=== PATIENT | male | born 1945 | race Caucasian/White ===

== ENCOUNTER 2019-03-02 09:38 | Inpatient (IN) | payer OTHER, MEDICARE, BC ==
[2019-03-02 10:29] LABS: ABSOLUTE LYMPHOCYTES (AUTO) 1.9 10^3/uL (0.5-4.7); ABSOLUTE MONOCYTES (AUTO) 0.6 10^3/uL (0.1-1.4); ABSOLUTE NEUT (AUTO) 4.8 10^3/uL (1.7-8.2); BASOPHILS % (AUTO) 0.5 % (0-2); EOSINOPHILS % (AUTO) 0.7 % (0-6); HEMOGLOBIN 16.9 g/dL (13.5-17.0); LYMPHOCYTES % (AUTO) 25.7 % (13-45); MEAN CORPUSCULAR HEMOGLOBIN 32.7 pg (27.0-33.4); MEAN CORPUSCULAR HGB CONC 33.8 g/dL (32.0-36.0); MEAN CORPUSCULAR VOLUME 97 fl (80-97); MONOCYTES % (AUTO) 7.8 % (3-13); PLATELET COUNT 190 10^3/uL (150-450); RED BLOOD COUNT 5.17 10^6/uL (4.35-5.55); RED CELL DISTRIBUTION WIDTH 14.1 % (11.5-14.0); SEGMENTED NEUTROPHILS % (AUTO) 65.3 % (42-78); TOTAL CELLS COUNTED % (AUTO) 100 %; WHITE BLOOD COUNT 7.3 10^3/uL (4.0-10.5)
[2019-03-02 10:44] LABS: ALBUMIN 4.7 g/dL (3.5-5.0); ALKALINE PHOSPHATASE 79 U/L (38-126); ANION GAP 8 (5-19); ASPARTATE AMINO TRANSFERASE 41 U/L (17-59); BILIRUBIN,DIRECT 0.3 mg/dL (0.0-0.4); BILIRUBIN,TOTAL 1.3 mg/dL (0.2-1.3); BLOOD UREA NITROGEN 22 mg/dL (7-20); CALCIUM 9.9 mg/dL (8.4-10.2); CARBON DIOXIDE 30 mmol/L (22-30); CHLORIDE 100 mmol/L (98-107); CREATINE KINASE 95 U/L (55-170); GLUCOSE 97 mg/dL (75-110); POTASSIUM 4.6 mmol/L (3.6-5.0); TOTAL PROTEIN 7.6 g/dL (6.3-8.2)
[2019-03-02 10:54] LABS: CREATINE KINASE MB 1.35 ng/mL (<4.55)
[2019-03-02 11:00] LABS: TROPONIN I < 0.012 ng/mL
--- NOTE | 2019-03-02 12:46 | EKG REPORT ---
SEVERITY:- ABNORMAL ECG - ATRIAL FIBRILLATION RIGHT BUNDLE BRANCH BLOCK : Confirmed by: Reggie Mckenzie MD 02-Mar-2019 12:45:18
[2019-03-02 13:05] LABS: INTERNATIONAL RATION (INR) 0.91; PROTHROMBIN TIME 12.2 SEC (11.4-15.4)
[2019-03-02 13:07] LABS: D-DIMER 0.52 ug/mL (0.00-0.50)
--- NOTE | 2019-03-02 14:05 | RADIOLOGY REPORT (SQ) ---
EXAM DESCRIPTION: CHEST SINGLE VIEW COMPLETED DATE/TIME: 03/02/2019 1:51 pm REASON FOR STUDY: New onset atrial fibrillation COMPARISON: None. EXAM PARAMETERS: NUMBER OF VIEWS: One view. TECHNIQUE: Single frontal radiographic view of the chest acquired. RADIATION DOSE: NA LIMITATIONS: None. FINDINGS: LUNGS AND PLEURA: No opacities, masses or pneumothorax. No pleural effusion. MEDIASTINUM AND HILAR STRUCTURES: No masses. Ectatic aorta. HEART AND VASCULAR STRUCTURES: Heart upper limits of normal in size. Normal vasculature. BONES: No acute findings. Degenerative changes in the spine. HARDWARE: None in the chest. OTHER: No other significant finding. IMPRESSION: NO ACUTE RADIOGRAPHIC FINDING IN THE CHEST. TECHNICAL DOCUMENTATION: JOB ID: [id number] [employer]- All Rights Reserved Reading location - IP/workstation name: [email or web address]
--- NOTE | 2019-03-02 14:23 | ER Document Report ---
Entered by RAYSHAWN MARCH SCRIBE 03/02/19 1249 Acting as scribe for:BRANDON CALL MD ED General - General Chief Complaint: Arrhythmia Stated Complaint: SHOULDER PAIN Time Seen by Provider: 03/02/19 12:21 Information source: Patient Notes: 73 year old presents to the ED with possible AFib via EMS. Patient reports no history of abnormal heart rhythm, but adds that oral surgeon stated he had Afib 4 months ago. Patient did not follow-up with his doctor after he was told by the oral surgeon that he needed to. Patient also reports he had an MRI of his back about 9 to 12 months ago that showed an aneurysm and he needed to see someone for that. He does not know where the aneurysm was and he did not follow-up by history. The pain management practice told him about the aneurysm seen when they looked at the MRI prior to doing epidural injections. He states he did get 3 shots in his back. He does state that his doctor does an ultrasound of his aorta every 6 months but this he states that it is never been enlarged. He states that the MRI was done at [facility]. I did call [facility] and they looked through their computer records and could not find a record of him ever having been there for any studies. Today the patient is complaining of pain in the left neck and shoulder going down to the elbow. He states that he can "hardly move" and "painful to move". This pain in his neck, shoulder to elbow began 3 days prior to arrival in ED. Patient complains of cramps in legs, feet and toes that started around a year ago. Patient also shows concern of reddish skin of the face that has been present for a long time. Family was requesting that we do toxin screens on the patient to find out what is wrong with him. TRAVEL OUTSIDE OF THE [place] IN LAST 30 DAYS: No - Related Data Allergies/Adverse Reactions: No Known Allergies Allergy (Verified 03/02/19 12:40) Home Medications: fish oil, 81mg asa, "cholesterol pill" Past Medical History - General Information source: Patient - Social History Smoking Status: Current Some Day Smoker Cigarette use (# per day): Yes Chew tobacco use (# tins/day): No Smoking Education Provided: No Frequency of alcohol use: Occasional Drug Abuse: None Occupation: Used car sales Family History: Reviewed & Not Pertinent Patient has suicidal ideation: No Patient has homicidal ideation: No - Past Medical History Cardiac Medical History: Reports: Hx Hypercholesterolemia Pulmonary Medical History: Reports: None GI Medical History: Reports: Hx Gastroesophageal Reflux Disease Traumatic Medical History: Reports: Hx Fractures - Left first rib fracture Surgical Hx: Other - 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 - Immunizations Hx Diphtheria, Pertussis, Tetanus Vaccination: Yes Review of Systems - Review of Systems Constitutional: No symptoms reported EENT: No symptoms reported Cardiovascular: No symptoms reported Respiratory: No symptoms reported Gastrointestinal: No symptoms reported Genitourinary: No symptoms reported Male Genitourinary: No symptoms reported Musculoskeletal: See HPI, Muscle pain - Left neck, shoulder to elbow Skin: See HPI, Change in color - Red in face Hematologic/Lymphatic: No symptoms reported Neurological/Psychological: No symptoms reported Physical Exam - Vital signs Vitals: Resp Pulse Ox 24 H 99 03/02/19 09:46 03/02/19 09:46 Interpretation: Normal - General General appearance: Appears well, Alert - HEENT Head: Normocephalic, Atraumatic Eyes: Normal Pupils: PERRL Neck: Other - Left posterior cervical muscles and left trapezius muscle tender to palpate - Respiratory Respiratory status: No respiratory distress Chest status: Tender - Tender to palpate the left scapular muscles and left trapezius muscle Breath sounds: Normal - Cardiovascular Rhythm: Regular Heart sounds: Normal auscultation Murmur: No - Abdominal Inspection: Normal Distension: No distension Bowel sounds: Normal Tenderness: Nontender - Back Back: Tender - There is paraspinal cervical tenderness with palpation on the left. Tenderness over the posterior left shoulder and left scapula. - Neurological Neuro grossly intact: Yes Cognition: Normal Orientation: AAOx4 Henderson Coma Scale Eye Opening: Spontaneous Felipe Coma Scale Verbal: Oriented Henderson Coma Scale Motor: Obeys Commands Henderson Coma Scale Total: 15 Speech: Normal - Psychological Associated symptoms: Normal affect, Normal mood - Skin Skin Temperature: Warm Skin Moisture: Dry Skin Color: Normal Location of irregularity: Face - Has what appears to be rosacea on his face. Course - Vital Signs Vital signs: Temp Pulse Resp BP Pulse Ox 25 H 145/93 H 97 03/02/19 13:01 03/02/19 13:01 03/02/19 13:01 - Laboratory Result Diagrams: 03/02/19 09:50 03/02/19 09:50 Laboratory results interpreted by me: 03/02/19 03/02/19 03/02/19 09:50 09:50 09:50 RDW 14.1 H D-Dimer 0.52 H BUN 22 H Est GFR (MDRD) Non-Af 57 L - Diagnostic Test Radiology reviewed: Image reviewed, Reports reviewed - Chest x-ray shows ectatic aorta. CTA chest does not show abnormalities. - EKG Interpretation by Me EKG shows normal: [place], Intervals, QRS Complexes, ST-T Waves Rate: Normal - 93 Rhythm: A.Fib [place]/QRS: RBBB When compared to previous EKG there are: Previous EKG unavailable - Consults Dr. Aguilar Time consulted: 15:05 Consulted provider: will come to ER Discharge - Discharge Clinical Impression: New onset atrial fibrillation, Rosacea Muscle strain of left shoulder region Qualifiers: Encounter type: initial encounter Qualified Code(s): S46.912A - Strain of unspecified muscle, fascia and tendon at shoulder and upper arm level, left arm, initial encounter Condition: Stable Disposition: ADMITTED INPATIENT Admitting Provider: Dr. Aguilar Unit Admitted: Telemetry Scribe Attestation: 03/02/19 13:30 I personally performed the services described in the documentation, reviewed and edited the documentation which was dictated to the scribe in my presence, and it accurately records my words and actions. I personally performed the services described in the documentation, reviewed and edited the documentation which was dictated to the scribe in my presence, and it accurately records my words and actions.
--- NOTE | 2019-03-02 14:46 | RADIOLOGY REPORT (SQ) ---
EXAM DESCRIPTION: CTA CHEST COMPLETED DATE/TIME: 03/02/2019 2:26 pm REASON FOR STUDY: Thoracic aortic artery aneurysm COMPARISON: None. TECHNIQUE: CT scan of the chest performed using helical scanning technique with dynamic intravenous contrast injection. Images reviewed with lung, soft tissue and bone windows. Reconstructed coronal and sagittal MPR images reviewed. Additional 3 dimensional post-processing performed to develop Maximal Intensity Projection images (MN P). All images stored on PACS. All CT scanners at this facility use dose modulation, iterative reconstruction, and/or weight based d osing when appropriate to reduce radiation dose to as low as reasonably achievable (ALARA). [facility]: Dose Right [facility]: CareDose [facility]: Dose Right [facility]: Teradose 4D [facility]: [employer] CONTRAST TYPE AND DOSE: contrast/concentration: Isovue 350.00 mg/ml; Total Contrast Delivered: 67.0 ml; Total Saline Delivered: 57.0 ml Contrast bolus adequate for pulmonary arteries and aorta. RENAL FUNCTION: BUN 22 creatinine 1.24. No RADIATION DOSE: CT Rad equipment meets quality standard of care and radiation dose reduction techniq ues were employed. CTDIvol: 22.3 - 34.7 mGy. DLP: 932 mGy-cm. . LIMITATIONS: None. FINDINGS: LUNGS AND PLEURA: No masses, infiltrates, or pneumothorax. No pleural effusions or pleura l calcifications. AORTA AND GREAT VESSELS: No aneurysm. Contrast bolus not optimized for the aorta. HEART: No pericardial effusion. No significant coronary artery calcifications. PULMONARY ARTERIES: No emboli visualized in the main pulmonary arteries or the segmental branches. HILAR AND MEDIASTINAL STRUCTURES: No identified masses or abnormal nodes. HARDWARE: None in the chest. UPPER ABDOMEN: No significant findings. Limited exam. THYROID AND OTHER SOFT TISSUES: No masses. No adenopathy. BONES: No acute or significant finding. 3D MIPS: Confirm above findings. OTHER: No other significant finding. IMPRESSION: NORMAL CTA OF THE CHEST. NO THORACIC AORTIC ANEURYSM OR DISSECTION. NO PULMONARY EMBOL I. COMMENT: Quality ID # [id number]: Final reports with documentation of one or more dose reduction techniques (e.g., Automated exposure control, adjustment of the mA and/or kV according to patient size, use of iterative reconstruction technique) TECHNICAL DOCUMENTATION: JOB ID: [id number] [employer]- All Rights Reserved Reading location - IP/workstation name: [email or web address]
[2019-03-02] MEDS ORDERED: HEPARIN SOD (PORCINE) 1,000 UNIT/ML 10 ML VIAL IV ONE (17:55)
[2019-03-02] MEDS ORDERED: PROMETHAZINE HCL INJ 25 MG/1 ML VIAL IV PRN (17:56)
[2019-03-02] MEDS ORDERED: ACETAMINOPHEN 325 MG TABLET PO PRN (17:56)
[2019-03-02] MEDS ORDERED: HEPARIN SODIUM,PORCINE/D5W 25,000 UNIT/250 ML RTUINJ IV PRN (17:56)
[2019-03-02] MEDS ORDERED: PROMETHAZINE HCL 25 MG TABLET PO PRN (17:56)
[2019-03-02] MEDS ORDERED: ONDANSETRON HCL INJ/PF 4 MG/2 ML SDV IV PRN (17:56)
[2019-03-02] MEDS ORDERED: ONDANSETRON 4 MG TAB.RAPDIS PO PRN (17:56)
[2019-03-02] MEDS ORDERED: DILTIAZEM HCL/D5W 125 MG/125 ML RTUINJ IV SCH (18:00)
--- NOTE | 2019-03-02 18:17 | PDOC H&P ---
History of Present Illness Admission Date/PCP: 03/02/19 15:46 TYRA ELLIOTT MD History of Present Illness: BETTY BRUCE is a 73 year old male who presents with severe left shoulder pain, sent by his urgent care physician when they discovered he had A. fib on EKG. Patient was initially quite reluctant to go to the hospital but did eventually agree to go. Per patient family he was diagnosed with A. fib by his oral surgeon's office about 4 months prior to admission and was told to follow- up with a physician to have this treated appropriately, unfortunately patient chose not to do this. Patient notes also having an episode of blurred vision which resolved spontaneously and has not recurred. He denies chest pain, shortness of breath/HALEY, nausea/vomiting/diarrhea/abdominal pain. He states he has been completely unaware of his A. fib as he has felt "fine". On admission his heart rate is up in the 130s to 150s with a clearly irregularly irregular rhythm on telemetry. He only takes a baby aspirin, statin, fish oil daily. He has severe neck pain has been going on for several days and he denies any falls/injuries in recent or distant previous history. He states he just woke up with his neck in pain. Admitted for further work-up and treatment. Past Medical History Cardiac Medical History: Reports: Atrial Fibrillation, Coronary Artery Disease, Hyperlipidema Denies: Myocardial Infarction, Hypertension Pulmonary Medical History: Reports: None Denies: Asthma, Bronchitis, Chronic Obstructive Pulmonary Disease (COPD), Pneumonia Neurological Medical History: Denies: Seizures Renal/ Medical History: Reports: None Malignancy Medical History: Reports: None GI Medical History: Reports: Gastroesophageal Reflux Disease Denies: Hepatitis, Hiatal Hernia Musculoskeltal Medical History: Denies: Arthritis Psychiatric Medical History: Reports: None Traumatic Medical History: Reports: None Hematology: Denies: Anemia, Sickle Cell Disease Past Surgical History Past Surgical History: Reports: None Denies: Pacemaker Social History Information Source: Patient Lives with: Family Smoking Status: Current Every Day Smoker Cigarettes Packs Per Day: 0.5 Frequency of Alcohol Use: Occasional Amount of Alcoholic Beverages Per Day: 2 Hx Recreational Drug Use: No Drugs: None Hx Prescription Drug Abuse: No - Advance Directive Surrogate healthcare decision maker:: Daughters Family History Family History: Reviewed & Not Pertinent, Malignancy Parental Family History Reviewed: Yes Children Family History Reviewed: Yes Sibling(s) Family History Reviewed.: Yes Medication/Allergy Home Medications: Aspirin [Ecotrin] 81 mg PO DAILY 05/16/13 Atorvastatin Calcium [Lipitor 40 mg Tablet] 40 mg PO DAILY 05/16/13 [place]-3 Fatty Acids/Fish Oil [[place] 3 Fish Oil Softgel] 1 each PO DAILY 05/16/13 Omeprazole [Prilosec] 40 mg PO DAILY 05/16/13 Allergies/Adverse Reactions: No Known Allergies Allergy (Verified 03/02/19 12:40) Review of Systems All systems: reviewed and no additional remarkable complaints except as stated - Left neck pain/shoulder pain, mild generalized fatigue and weakness; all other ROS per HPI Cardiovascular: ABSENT: chest pain, dyspnea on exertion, edema, orthropnea, palpitations Respiratory: ABSENT: cough, hemoptysis Gastrointestinal: ABSENT: abdominal pain, constipation, diarrhea, hematemesis, hematochezia, nausea, vomiting Neurological: ABSENT: abnormal gait, abnormal speech, confusion, dizziness, focal weakness, syncope Physical Exam Vital Signs: Temp Pulse Resp BP Pulse Ox 16 152/97 H 99 03/02/19 17:00 03/02/19 14:01 03/02/19 17:00 Intake & Output 03/01/19 03/02/19 03/03/19 06:59 06:59 06:59 Weight 95.254 kg General appearance: PRESENT: no acute distress, well-developed, well-nourished Head exam: PRESENT: atraumatic, normocephalic Eye exam: PRESENT: conjunctiva pink Mouth exam: PRESENT: moist Respiratory exam: PRESENT: clear to auscultation christelle. ABSENT: rales, rhonchi, wheezes Cardiovascular exam: PRESENT: irregular rhythm, tachycardia. ABSENT: diastolic murmur, systolic murmur GI/Abdominal exam: PRESENT: normal bowel sounds, soft. ABSENT: distended, guarding, mass, organolmegaly, rebound, tenderness Rectal exam: PRESENT: deferred Musculoskeletal exam: PRESENT: ambulatory Neurological exam: PRESENT: alert, awake Skin exam: PRESENT: dry, intact, warm Results Laboratory Results: 03/02/19 09:50 03/02/19 09:50 03/02/19 03/02/19 09:50 09:50 WBC 7.3 RBC 5.17 Hgb 16.9 Hct 50.0 MCV 97 MCH 32.7 MCHC 33.8 RDW 14.1 H Plt Count 190 Seg Neutrophils % 65.3 Sodium 138.4 Potassium 4.6 Chloride 100 Carbon Dioxide 30 Anion Gap 8 BUN 22 H Creatinine 1.24 Est GFR ( Amer) > 60 Glucose 97 Calcium 9.9 Total Bilirubin 1.3 AST 41 Alkaline Phosphatase 79 Total Protein 7.6 Albumin 4.7 03/02/19 03/02/19 09:50 09:50 Creatine Kinase 95 CK-MB (CK-2) 1.35 Troponin I < 0.012 Impressions: Chest X-Ray 03/02/19 13:20 IMPRESSION: NO ACUTE RADIOGRAPHIC FINDING IN THE CHEST. Chest/Abdomen CTA 03/02/19 13:56 IMPRESSION: NORMAL CTA OF THE CHEST. NO THORACIC AORTIC ANEURYSM OR DISSECTION. NO PULMONARY EMBOLI. Assessment and Plan - Diagnosis (1) Atrial fibrillation with RVR Is this a current diagnosis for this admission?: Yes Plan: Heart rate in the 130s to 150s on admission Started on diltiazem drip rate of 5 mL/h; titrate to heart rate goal of less than 110 bpm Start IV heparin; transition to Noac when heart rate is stabilized and ready for discharge Needs to treat underlying sleep apnea which she has already been diagnosed with but does not use his machine at home. (2) Statin myopathy Is this a current diagnosis for this admission?: Yes Plan: Suspect he has whole-body muscle cramps due to statin, possibly an adequate fluid intake Stop statin for the next few weeks and reassess with PCP if he is to continue statin; may need to switch to alternative agent (3) Muscle strain of left shoulder region Qualifiers: Encounter type: initial encounter Qualified Code(s): S46.912A - Strain of unspecified muscle, fascia and tendon at shoulder and upper arm level, left arm, initial encounter Is this a current diagnosis for this admission?: Yes Plan: Suspect due to statin myopathy Negative Lhermitte sign, strength 5/5 in both hands and arms Unlikely patient has cervical disc as the source of his neck pain given lack of weakness and lack of reproducible neuropathic pain with testing as above Follow-up with PCP regarding need for advanced imaging, will hold off on this here Hold statin, as needed Flexeril (4) New onset atrial fibrillation Is this a current diagnosis for this admission?: Yes (5) Rosacea Is this a current diagnosis for this admission?: Yes Plan: Follow-up with dermatology outpatient - Time Time Spent with patient: 35 or more minutes Smoking Cessation Education: 3 to 10 minutes Medications reviewed and adjusted accordingly: Yes Anticipated discharge: Home Within: within 48 hours - Inpatient Certification Medical Necessity: Significant Comorbidiites Make Outpatient Treatment Too Risky, Need Close Monitoring Due to Risk of Patient Decompensation
--- NOTE | 2019-03-02 18:18 | ADVANCED CARE ---
- Diagnosis (1) Atrial fibrillation with RVR Diagnosis Current: Yes (2) Statin myopathy Diagnosis Current: Yes (3) Muscle strain of left shoulder region Diagnosis Current: Yes (4) New onset atrial fibrillation Diagnosis Current: Yes (5) Rosacea Diagnosis Current: Yes Attendance: Patient both daughters present for discussion Resuscitation Status: Full Code Discussion: Extensive discussion of all aspects of code including chest compressions/intubation/cardioversion with the patient and both his and POA daughters present. He states he wishes to be full code and his daughters are in agreement with this plan. He states he would like both his daughters to be his M POA. 1 of which is Ivet Leung who can be reached at [phone] Time Spent: 17 minutes
[2019-03-02] MEDS ORDERED: DILTIAZEM HCL/D5W 125 MG/125 ML RTUINJ IV PRN (18:54)
[2019-03-02] MEDS: CYCLOBENZAPRINE HCL 10 MG TABLET PO PRN (20:00)
[2019-03-02] MEDS ORDERED: HEPARIN SOD (PORCINE) 1,000 UNIT/ML 10 ML VIAL IV PRN (20:56)
[2019-03-02] MEDS: OXYCODONE-ACETAMINOPHEN 5-325 MG TABLET PO PRN (21:05)
[2019-03-02] MEDS ORDERED: MELATONIN 5 MG TABLET PO PRN (21:41)
[2019-03-02] MEDS ORDERED: TRAZODONE HCL 50 MG TABLET PO PRN (21:41)
[2019-03-02 21:58] LABS: APPEARANCE,URINE CLEAR; BILIRUBIN,URINE NEGATIVE (NEGATIVE); COLOR,URINE YELLOW; GLUCOSE, URINE NEGATIVE (NEGATIVE); KETONES,URINE NEGATIVE (NEGATIVE); LEUKOCYTE ESTERASE,URINE NEGATIVE (NEGATIVE); NITRITE,URINE NEGATIVE (NEGATIVE); PROTEIN,URINE NEGATIVE (NEGATIVE); UROBILINOGEN,URINE NEGATIVE mg/dL (<2.0)
[2019-03-02 22:08] LABS: INTERNATIONAL RATION (INR) 1.03; PROTHROMBIN TIME 13.5 SEC (11.4-15.4)
[2019-03-02 22:10] LABS: PARTIAL THROMBOPLASTIN TIME 67.6 SEC (23.5-35.8)
[2019-03-03] MEDS ORDERED: DILTIAZEM HCL 180 MG CAPSULE.CR PO ONE (02:00)
[2019-03-03 05:48] LABS: ABSOLUTE LYMPHOCYTES (AUTO) 2.2 10^3/uL (0.5-4.7); ABSOLUTE MONOCYTES (AUTO) 0.4 10^3/uL (0.1-1.4); ABSOLUTE NEUT (AUTO) 2.8 10^3/uL (1.7-8.2); BASOPHILS % (AUTO) 0.8 % (0-2); EOSINOPHILS % (AUTO) 0.7 % (0-6); HEMATOCRIT 45.6 % (37.9-51.0); HEMOGLOBIN 15.8 g/dL (13.5-17.0); LYMPHOCYTES % (AUTO) 39.9 % (13-45); MEAN CORPUSCULAR HEMOGLOBIN 32.8 pg (27.0-33.4); MEAN CORPUSCULAR HGB CONC 34.6 g/dL (32.0-36.0); MEAN CORPUSCULAR VOLUME 95 fl (80-97); MONOCYTES % (AUTO) 7.4 % (3-13); PLATELET COUNT 160 10^3/uL (150-450); RED BLOOD COUNT 4.81 10^6/uL (4.35-5.55); RED CELL DISTRIBUTION WIDTH 14.2 % (11.5-14.0); SEGMENTED NEUTROPHILS % (AUTO) 51.2 % (42-78); TOTAL CELLS COUNTED % (AUTO) 100 %; WHITE BLOOD COUNT 5.4 10^3/uL (4.0-10.5)
[2019-03-03] MEDS: OXYCODONE-ACETAMINOPHEN 5-325 MG TABLET PO PRN (05:54)
[2019-03-03 06:14] LABS: ANION GAP 9 (5-19); BLOOD UREA NITROGEN 20 mg/dL (7-20); CALCIUM 9.4 mg/dL (8.4-10.2); CARBON DIOXIDE 24 mmol/L (22-30); CHLORIDE 103 mmol/L (98-107); GLUCOSE 117 mg/dL (75-110); POTASSIUM 4.1 mmol/L (3.6-5.0); TRIGLYCERIDES 126 mg/dL (<150)
[2019-03-03 06:25] LABS: DIRECT LDL 123 mg/dL (<100)
--- NOTE | 2019-03-03 07:05 | EKG REPORT ---
SEVERITY:- ABNORMAL ECG - ATRIAL FIBRILLATION, V-RATE 51-77 RIGHT BUNDLE BRANCH BLOCK : Confirmed by: Reggie Mckenzie MD 03-Mar-2019 07:04:25
[2019-03-03 07:09] LABS: INTERNATIONAL RATION (INR) 0.93; PROTHROMBIN TIME 12.5 SEC (11.4-15.4)
[2019-03-03] MEDS ORDERED: DILTIAZEM HCL 180 MG CAPSULE.CR PO SCH ×2 (10:00)
[2019-03-03] MEDS: DOCUSATE SODIUM 100 MG CAPSULE PO SCH (11:35)
--- NOTE | 2019-03-03 17:20 | PDOC PROGRESS REPORT ---
Subjective Progress Note for:: 03/03/19 Subjective:: Patient is a 73-year-old white male who presented with A. fib and acute RVR and moderate severe left neck pain. Started on diltiazem drip and later transitioned to oral diltiazem with good rate control. Started on heparin drip and later started on noac. Reason For Visit: CHRONIC AFIB IN RVR,LEFT SHOULDER PAIN Physical Exam Vital Signs: Temp Pulse Resp BP Pulse Ox 97.3 F 74 18 117/88 H 98 03/03/19 12:18 03/03/19 14:00 03/03/19 12:18 03/03/19 12:18 03/03/19 12:18 Intake & Output 03/02/19 03/03/19 03/04/19 06:59 06:59 06:59 Intake Total 308 236 Balance 308 236 Weight 98.4 kg General appearance: PRESENT: no acute distress, well-developed, well-nourished Head exam: PRESENT: atraumatic, normocephalic Respiratory exam: PRESENT: clear to auscultation christelle. ABSENT: rales, rhonchi, wheezes Cardiovascular exam: PRESENT: irregular rhythm. ABSENT: diastolic murmur, systolic murmur, tachycardia GI/Abdominal exam: PRESENT: normal bowel sounds, soft. ABSENT: distended, guarding, mass, organolmegaly, rebound, tenderness Extremities exam: ABSENT: pedal edema Musculoskeletal exam: PRESENT: ambulatory Neurological exam: PRESENT: alert, awake Psychiatric exam: PRESENT: appropriate affect, normal mood Skin exam: PRESENT: dry, intact, warm Results Laboratory Results: 03/03/19 05:06 03/03/19 05:06 03/02/19 03/03/19 03/03/19 21:30 05:06 05:06 WBC 5.4 RBC 4.81 Hgb 15.8 Hct 45.6 MCV 95 MCH 32.8 MCHC 34.6 RDW 14.2 H Plt Count 160 Seg Neutrophils % 51.2 Sodium 135.8 L Potassium 4.1 Chloride 103 Carbon Dioxide 24 Anion Gap 9 BUN 20 Creatinine 0.98 Est GFR ( Amer) > 60 Glucose 117 H Calcium 9.4 Magnesium 2.1 Triglycerides 126 Cholesterol 179.70 LDL Cholesterol Direct 123 H VLDL Cholesterol 25.0 HDL Cholesterol 49 TSH Urine Color YELLOW Urine Appearance CLEAR Urine pH 5.0 Ur Specific [place] 1.030 Urine Protein NEGATIVE Urine Glucose (UA) NEGATIVE Urine Ketones NEGATIVE Urine Blood NEGATIVE Urine Nitrite NEGATIVE Ur Leukocyte Esterase NEGATIVE Urine WBC (Auto) 1 Urine RBC (Auto) 0 03/03/19 05:06 WBC RBC Hgb Hct MCV MCH MCHC RDW Plt Count Seg Neutrophils % Sodium Potassium Chloride Carbon Dioxide Anion Gap BUN Creatinine Est GFR ( Amer) Glucose Calcium Magnesium Triglycerides Cholesterol LDL Cholesterol Direct VLDL Cholesterol HDL Cholesterol TSH 4.08 Urine Color Urine Appearance Urine pH Ur Specific [place] Urine Protein Urine Glucose (UA) Urine Ketones Urine Blood Urine Nitrite Ur Leukocyte Esterase Urine WBC (Auto) Urine RBC (Auto) 03/02/19 03/02/19 09:50 09:50 Creatine Kinase 95 CK-MB (CK-2) 1.35 Troponin I < 0.012 Impressions: Chest X-Ray 03/02/19 13:20 IMPRESSION: NO ACUTE RADIOGRAPHIC FINDING IN THE CHEST. Chest/Abdomen CTA 03/02/19 13:56 IMPRESSION: NORMAL CTA OF THE CHEST. NO THORACIC AORTIC ANEURYSM OR DISSECTION. NO PULMONARY EMBOLI. Assessment and Plan - Diagnosis (1) Atrial fibrillation with RVR Is this a current diagnosis for this admission?: Yes Plan: Heart rate in the 130s to 150s on admission Started on diltiazem drip rate of 5 mL/h, transition to oral diltiazem overnight Start IV heparin; transitioned to Eliquis twice daily Needs to treat underlying sleep apnea which she has already been diagnosed with but does not use his machine at home. (2) Statin myopathy Is this a current diagnosis for this admission?: Yes (3) Muscle strain of left shoulder region Qualifiers: Encounter type: initial encounter Qualified Code(s): S46.912A - Strain of unspecified muscle, fascia and tendon at shoulder and upper arm level, left arm, initial encounter Is this a current diagnosis for this admission?: Yes Plan: Suspect due to statin myopathy Negative Lhermitte sign, strength 5/5 in both hands and arms Unlikely patient has cervical disc as the source of his neck pain given lack of weakness and lack of reproducible neuropathic pain with testing as above Follow-up with PCP regarding need for advanced imaging, will hold off on this here Hold statin, as needed Flexeril which has been very effective per patient (4) New onset atrial fibrillation Is this a current diagnosis for this admission?: Yes (5) Rosacea Is this a current diagnosis for this admission?: Yes - Time Time Spent with patient: 25-34 minutes Medications reviewed and adjusted accordingly: Yes Anticipated discharge: Home Within: within 24 hours - Inpatient Certification Based on my medical assessment, after consideration of the patient's comorbidities, presenting symptoms, or acuity I expect that the services needed warrant INPATIENT care.: Yes I certify that my determination is in accordance with my understanding of Medicare's requirements for reasonable and necessary INPATIENT services [42 CFR 412.3e].: Yes Medical Necessity: Significant Comorbidiites Make Outpatient Treatment Too Risky, Need Close Monitoring Due to Risk of Patient Decompensation
[2019-03-03] MEDS: CYCLOBENZAPRINE HCL 10 MG TABLET PO PRN (17:57)
[2019-03-03] MEDS: APIXABAN 5 MG TABLET PO SCH (17:58)
--- NOTE | 2019-03-03 20:14 | XCELERA REPORT ---
[address] [address] Transthoracic Echocardiogram Report Name: BETTY BRUCE Age: 73 yrs Gender: Male : 1945 Patient Status: Inpatient Patient Location: [facility]^A Study Date: 03/02/2019 07:59 PM Height: 72 in Weight: 210 lb BSA: 2.2 m2 Reason For Study: Afib Ordering Physician: TYRA BHATIA Performed By: Sameera Dhillon Interpretation Summary ECHO for A Fib. Poor study. SUSAN not calculated. R heart poorly visualized RVSP not calculated properly in that RA measurements not /and could not be done, hence RAP assumption to be 8 mm Hg is wrong. No significant post pericardial effusion Ao root is calcified but not dilated. Non-stenotic calcific AV disease with no and no AR. AV is 3 cusps. Mild mitral annular calcification with no MS no MVP and no MR and LA, though not calculated, qual. is not enlarged, and LA by my 2D measurement is 38 mm not dilated. No ASD. LV showed mild LVH, with hypokinesis of the basal inferior wall, EF is visually 65-70% and not enlarged. and no LVDD. RH commented above. MMode/2D Measurements & Calculations RVDd: 1.9 cm LVIDd: 4.2 cm FS: 36.3 % Ao root diam: 3.4 cm IVSd: 1.2 cm LVIDs: 2.7 cm EDV(Teich): 78.2 ml LVPWd: 0.93 cm ESV(Teich): 26.2 ml Ao root area: 9.2 cm2 LA dimension: 2.6 cm EF(Teich): 66.5 % Doppler Measurements & Calculations MV E max monika: MV P1/2t max monika: Ao V2 max: LV V1 max P.9 cm/sec 69.2 cm/sec 107.7 cm/sec 2.3 mmHg MV A max monika: MV P1/2t: 55.8 msec Ao max P.6 mmHg LV V1 max: 39.3 cm/sec MVA(P1/2t): 3.9 cm2 76.4 cm/sec MV E/A: 1.9 MV dec slope: 363.3 cm/sec2 MV dec time: 0.16 sec PA V2 max: TR max monika: MV P1/2t-pr_phl: 76.8 cm/sec 243.2 cm/sec 55.8 msec PA max PG: TR max P.7 mmHg 2.4 mmHg I WMSI = 1.06 % Normal = 94 Segments Size X - Cannot 2 - 4 - 1-2 small Interpret 1 - Normal Hypokinetic 3 - AkineticDyskinetic 3-5 moderate 5 - 6-14 large Aneurysmal 15-16 diffuse : TYRA BHATIA Andre
[2019-03-03] MEDS: DILTIAZEM HCL 120 MG CAP.SR.24H PO SCH (21:45)
[2019-03-03] MEDS ORDERED: DILTIAZEM HCL 120 MG CAP.SR.24H PO SCH (22:00)
[2019-03-04] MEDS ORDERED: DILTIAZEM HCL 180 MG CAPSULE.CR PO ONE (01:30)
[2019-03-04 05:13] LABS: ABSOLUTE EOSINOPHILS # (AUTO) 0.1 10^3/uL (0.0-0.6); ABSOLUTE MONOCYTES (AUTO) 0.5 10^3/uL (0.1-1.4); ABSOLUTE NEUT (AUTO) 3.2 10^3/uL (1.7-8.2); BASOPHILS % (AUTO) 0.5 % (0-2); EOSINOPHILS % (AUTO) 0.9 % (0-6); HEMATOCRIT 48.1 % (37.9-51.0); HEMOGLOBIN 16.7 g/dL (13.5-17.0); LYMPHOCYTES % (AUTO) 34.8 % (13-45); MEAN CORPUSCULAR HEMOGLOBIN 33.2 pg (27.0-33.4); MEAN CORPUSCULAR HGB CONC 34.7 g/dL (32.0-36.0); MEAN CORPUSCULAR VOLUME 96 fl (80-97); PLATELET COUNT 158 10^3/uL (150-450); RED BLOOD COUNT 5.03 10^6/uL (4.35-5.55); RED CELL DISTRIBUTION WIDTH 14.1 % (11.5-14.0); SEGMENTED NEUTROPHILS % (AUTO) 55.8 % (42-78); TOTAL CELLS COUNTED % (AUTO) 100 %; WHITE BLOOD COUNT 5.8 10^3/uL (4.0-10.5)
[2019-03-04] MEDS: DILTIAZEM HCL 120 MG CAP.SR.24H PO SCH (06:26)
[2019-03-04] MEDS: OXYCODONE-ACETAMINOPHEN 5-325 MG TABLET PO PRN (08:28)
[2019-03-04] MEDS: DOCUSATE SODIUM 100 MG CAPSULE PO SCH (09:11)
[2019-03-04] MEDS: CYCLOBENZAPRINE HCL 10 MG TABLET PO PRN (09:11)
[2019-03-04] MEDS: APIXABAN 5 MG TABLET PO SCH (09:11)
--- NOTE | 2019-03-04 13:07 | PDOC DISCHARGE SUMMARY ---
Impression - Admit/DC Date/PCP Admission Date/Primary Care Provider: 03/02/19 15:46 TYRA ELLIOTT MD Discharge Date: 03/04/19 - Discharge Diagnosis (1) Atrial fibrillation with RVR Is this a current diagnosis for this admission?: Yes (2) Statin myopathy Is this a current diagnosis for this admission?: Yes (3) Muscle strain of left shoulder region Is this a current diagnosis for this admission?: Yes (4) New onset atrial fibrillation Is this a current diagnosis for this admission?: Yes (5) Rosacea Is this a current diagnosis for this admission?: Yes - Additional Information Resuscitation Status: Full Code Discharge Diet: Cardiac Discharge Activity: Activity As Tolerated Referrals: TYRA ELLIOTT MD [Primary Care Provider] - Follow up as needed Prescriptions: Diltiazem HCl [Cardizem Cd 180 mg Capsule] 180 mg PO QHS #30 capsule.cr Apixaban [Eliquis 5 mg Tablet] 5 mg PO BID #60 tablet Cyclobenzaprine HCl [Flexeril 10 mg Tablet] 5 mg PO Q8HP PRN #12 tablet PRN Reason: Home Medications: Jackson-3 Fatty Acids/Fish Oil [Jackson 3 Fish Oil Softgel] 1 each PO DAILY 05/16/13 Omeprazole [Prilosec] 40 mg PO DAILY 05/16/13 Apixaban [Eliquis 5 mg Tablet] 5 mg PO BID #60 tablet 03/04/19 Cyclobenzaprine HCl [Flexeril 10 mg Tablet] 5 mg PO Q8HP PRN #12 tablet 03/04/19 Diltiazem HCl [Cardizem Cd 180 mg Capsule] 180 mg PO QHS #30 capsule.cr 03/04/19 History of Present Illiness History of Present Illness: BETTY BRUCE is a 73 year old male who presents with severe left shoulder pain, sent by his urgent care physician when they discovered he had A. fib on EKG. Patient was initially quite reluctant to go to the hospital but did eventually agree to go. Per patient family he was diagnosed with A. fib by his oral surgeon's office about 4 months prior to admission and was told to follow- up with a physician to have this treated appropriately, unfortunately patient chose not to do this. Patient notes also having an episode of blurred vision which resolved spontaneously and has not recurred. He denies chest pain, shortness of breath/HALEY, nausea/vomiting/diarrhea/abdominal pain. He states he has been completely unaware of his A. fib as he has felt "fine". On admission his heart rate is up in the 130s to 150s with a clearly irregularly irregular rhythm on telemetry. He only takes a baby aspirin, statin, fish oil daily. He has severe neck pain has been going on for several days and he denies any fa lls/injuries in recent or distant previous history. He states he just woke up with his neck in pain. Admitted for further work-up and treatment. Hospital Course Hospital Course: (1) Atrial fibrillation with RVR Is this a current diagnosis for this admission?: Yes Plan: Heart rate in the 130s to 150s on admission; controlled with rates in 60's-70's at DC Started on diltiazem drip rate of 5 mL/h, transitioned to oral diltiazem Started IV heparin; transitioned to Eliquis twice daily Needs to treat underlying sleep apnea which she has already been diagnosed with but does not use his machine at home. Alternatively, he can get eval from ENT for Inspire device. d/w pt and family in detail. (2) Statin myopathy Is this a current diagnosis for this admission?: Yes (3) Muscle strain of left shoulder region Qualifiers: Encounter type: initial encounter Qualified Code(s): S46.912A - Strain of unspecified muscle, fascia and tendon at shoulder and upper arm level, left arm, initial encounter Is this a current diagnosis for this admission?: Yes Plan: Suspect due to statin myopathy as he has whole body myalgias for the past several months; cpk is wnl Negative Lhermitte sign, strength 5/5 in both hands and arms, doubt cervical spine source but possible; consider outpt MRI C-spine Unlikely patient has cervical disc as the source of his neck pain given lack of weakness and lack of reproducible neuropathic pain with testing as above Follow-up with PCP regarding need for advanced imaging, will hold off on this here Hold statin, as needed Flexeril which has been very effective per patient; after stopping statin, pt has had notable gradual improvement in muscle cramps/aches, nearly resolved completely at DC (4) New onset atrial fibrillation Is this a current diagnosis for this admission?: Yes (5) Rosacea Is this a current diagnosis for this admission?: Yes Physical Exam Vital Signs: Temp Pulse Resp BP Pulse Ox 98.2 F 66 21 H 118/89 H 98 03/04/19 08:08 03/04/19 08:08 03/04/19 08:08 03/04/19 08:08 03/04/19 08:08 Intake & Output 03/03/19 03/04/19 03/05/19 06:59 06:59 06:59 Intake Total 308 1532 Balance 308 1532 Weight 98.4 kg 97.3 kg General appearance: PRESENT: no acute distress, well-developed, well-nourished Head exam: PRESENT: atraumatic, normocephalic Eye exam: PRESENT: conjunctiva pink Mouth exam: PRESENT: moist Respiratory exam: PRESENT: clear to auscultation christelle. ABSENT: rales, rhonchi, wheezes Cardiovascular exam: PRESENT: irregular rhythm. ABSENT: diastolic murmur, systolic murmur, tachycardia GI/Abdominal exam: PRESENT: normal bowel sounds, soft. ABSENT: distended, guarding, mass, organolmegaly, rebound, tenderness Musculoskeletal exam: PRESENT: ambulatory Neurological exam: PRESENT: alert, awake Psychiatric exam: PRESENT: appropriate affect, normal mood Skin exam: PRESENT: dry, intact, warm Results Laboratory Results: WBC 5.8 10^3/uL (4.0-10.5) 03/04/19 04:38 RBC 5.03 10^6/uL (4.35-5.55) 03/04/19 04:38 Hgb 16.7 g/dL (13.5-17.0) 03/04/19 04:38 Hct 48.1 % (37.9-51.0) 03/04/19 04:38 MCV 96 fl (80-97) 03/04/19 04:38 MCH 33.2 pg (27.0-33.4) 03/04/19 04:38 MCHC 34.7 g/dL (32.0-36.0) 03/04/19 04:38 RDW 14.1 % (11.5-14.0) H 03/04/19 04:38 Plt Count 158 10^3/uL (150-450) 03/04/19 04:38 Lymph % (Auto) 34.8 % (13-45) 03/04/19 04:38 [place] % (Auto) 8.0 % (3-13) 03/04/19 04:38 Eos % (Auto) 0.9 % (0-6) 03/04/19 04:38 Baso % (Auto) 0.5 % (0-2) 03/04/19 04:38 Absolute Neuts (auto) 3.2 10^3/uL (1.7-8.2) 03/04/19 04:38 Absolute Lymphs (auto) 2.0 10^3/uL (0.5-4.7) 03/04/19 04:38 Absolute Monos (auto) 0.5 10^3/uL (0.1-1.4) 03/04/19 04:38 Absolute Eos (auto) 0.1 10^3/uL (0.0-0.6) 03/04/19 04:38 Absolute Basos (auto) 0.0 10^3/uL (0.0-0.2) 03/04/19 04:38 Seg Neutrophils % 55.8 % (42-78) 03/04/19 04:38 PT 12.5 SEC (11.4-15.4) 03/03/19 06:28 INR 0.93 03/03/19 06:28 APTT 62.2 SEC (23.5-35.8) H 03/02/19 22:58 D-Dimer 0.52 ug/mL (0.00-0.50) H 03/02/19 09:50 Sodium 135.8 mmol/L (137-145) L 03/03/19 05:06 Potassium 4.1 mmol/L (3.6-5.0) 03/03/19 05:06 Chloride 103 mmol/L (98-107) 03/03/19 05:06 Carbon Dioxide 24 mmol/L (22-30) 03/03/19 05:06 Anion Gap 9 (5-19) 03/03/19 05:06 BUN 20 mg/dL (7-20) 03/03/19 05:06 Creatinine 0.98 mg/dL (0.52-1.25) 03/03/19 05:06 Est GFR ( Amer) > 60 (>60) 03/03/19 05:06 Est GFR (MDRD) Non-Af > 60 (>60) 03/03/19 05:06 Glucose 117 mg/dL (75-110) H 03/03/19 05:06 Hemoglobin A1c % 6.0 % (4.7-6.0) 03/03/19 05:06 Calcium 9.4 mg/dL (8.4-10.2) 03/03/19 05:06 Magnesium 2.1 mg/dL (1.6-2.3) 03/03/19 05:06 Total Bilirubin 1.3 mg/dL (0.2-1.3) 03/02/19 09:50 Direct Bilirubin 0.3 mg/dL (0.0-0.4) 03/02/19 09:50 Neonat Total Bilirubin Not Reportable 03/02/19 09:50 Neonat Direct Bilirubin Not Reportable 03/02/19 09:50 Neonat Indirect Bili Not Reportable 03/02/19 09:50 AST 41 U/L (17-59) 03/02/19 09:50 ALT 43 U/L (<50) 03/02/19 09:50 Alkaline Phosphatase 79 U/L (38-126) 03/02/19 09:50 Creatine Kinase 95 U/L (55-170) 03/02/19 09:50 CK-MB (CK-2) 1.35 ng/mL (<4.55) 03/02/19 09:50 Troponin I < 0.012 ng/mL 03/02/19 09:50 Total Protein 7.6 g/dL (6.3-8.2) 03/02/19 09:50 Albumin 4.7 g/dL (3.5-5.0) 03/02/19 09:50 Triglycerides 126 mg/dL (<150) 03/03/19 05:06 Cholesterol 179.70 mg/dL (0-200) 03/03/19 05:06 LDL Cholesterol Direct 123 mg/dL (<100) H 03/03/19 05:06 VLDL Cholesterol 25.0 mg/dL (10-31) 03/03/19 05:06 HDL Cholesterol 49 mg/dL (>40) 03/03/19 05:06 TSH 4.08 uIU/mL (0.47-4.68) 03/03/19 05:06 Urine Color YELLOW 03/02/19 21:30 Urine Appearance CLEAR 03/02/19 21:30 Urine pH 5.0 (5.0-9.0) 03/02/19 21:30 Ur Specific Outlook 1.030 03/02/19 21:30 Urine Protein NEGATIVE mg/dL (NEGATIVE) 03/02/19 21:30 Urine Glucose (UA) NEGATIVE mg/dL (NEGATIVE) 03/02/19 21:30 Urine Ketones NEGATIVE mg/dL (NEGATIVE) 03/02/19 21:30 Urine Blood NEGATIVE (NEGATIVE) 03/02/19 21:30 Urine Nitrite NEGATIVE (NEGATIVE) 03/02/19 21:30 Urine Bilirubin NEGATIVE (NEGATIVE) 03/02/19 21:30 Urine Urobilinogen NEGATIVE mg/dL (<2.0) 03/02/19 21:30 Ur Leukocyte Esterase NEGATIVE (NEGATIVE) 03/02/19 21:30 Urine WBC (Auto) 1 /HPF 03/02/19 21:30 Urine RBC (Auto) 0 /HPF 03/02/19 21:30 Squamous Epi Cells Auto <1 /HPF 03/02/19 21:30 Urine Mucus (Auto) RARE /LPF 03/02/19 21:30 Urine Ascorbic Acid NEGATIVE (NEGATIVE) 03/02/19 21:30 03/02/19 09:50 CK-MB (CK-2) 1.35 Troponin I < 0.012 Impressions: Chest X-Ray 03/02/19 13:20 IMPRESSION: NO ACUTE RADIOGRAPHIC FINDING IN THE CHEST. Chest/Abdomen CTA 03/02/19 13:56 IMPRESSION: NORMAL CTA OF THE CHEST. NO THORACIC AORTIC ANEURYSM OR DISSECTION. NO PULMONARY EMBOLI. Plan Time Spent: Greater than 30 Minutes Stroke Is this a Stroke Patient?: No Acute Heart Failure - Is this a Heart Failure Patient?: No 3. Anticoagulant therapy for permanect/persistent/paraoxysmal Afib or Aflutter: Yes Follow-up Appointment scheduled within 7 days?: Yes
[2019-03-04 13:18] VITALS: BP 123/83
[2019-03-04] MEDS ORDERED: DILTIAZEM HCL 180 MG CAPSULE.CR PO SCH (22:00)
== END 2019-03-04 14:10 | disposition home or self-care (01) | DRG 309 ==
LOC: ER 09:38 → EH 15:46 → 3W 19:52
PROVIDERS: ADMIT Internal Medicine; ATTEND Internal Medicine
DX: I48.91 Unspecified atrial fibrillation (principal); G72.0 Drug-induced myopathy; T50.995A Adverse effect of other drugs, medicaments and biological substances, initial encounter; L71.9 Rosacea, unspecified; M25.512 Pain in left shoulder; M54.2 Cervicalgia; G47.30 Sleep apnea, unspecified; S46.912A Strain of unspecified muscle, fascia and tendon at shoulder and upper arm level, left arm, initial encounter; X58.XXXA Exposure to other specified factors, initial encounter
CPT/HCPCS: 36415; 71045; 71275; 80048; 80053; 80061; 81001; 82550; 82553; 83036; 83735; 84443; 84484; 85025; 85379; 85610; 85730; 93005; 93010; 93306; 99285; J1644; J3490